=== PATIENT | female | born 2000 | race Two or more races ===

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

== ENCOUNTER 2022-09-26 15:40 | Outpatient (CLI) | payer MEDICAID ==
[2022-09-26 18:02] LABS: BASOPHILS % (AUTO) 0.6 %; EOSINOPHILS # (AUTO) 0.1 10^3/uL (0.0-0.7); EOSINOPHILS % (AUTO) 1.3 %; HGB - HEMOGLOBIN 13.4 g/dL (12.0-16.0); LYMPHOCYTES # (AUTO) 2.1 10^3/uL (1.5-3.5); LYMPHOCYTES % (AUTO) 30.1 %; MEAN CORPUSCULAR HEMOGLOBIN 30.6 pg (27.0-31.0); MEAN CORPUSCULAR HGB CONC 33.5 g/dL (32.0-36.0); MEAN CORPUSCULAR VOLUME 91.3 fL (81.0-99.0); MEAN PLATELET VOLUME 10.7 fL (7.9-10.8); MONOCYTES # (AUTO) 0.5 10^3/uL (0.0-1.0); MONOCYTES % (AUTO) 6.8 %; NEUTROPHILS # (AUTO) 4.2 10^3/uL (1.5-6.6); NEUTROPHILS % (AUTO) 61.1 %; PLT - PLATELET COUNT 294 10^3/uL (130-450); RED BLOOD COUNT 4.38 10^6/uL (4.20-5.40); WHITE BLOOD COUNT 6.9 x10^3/uL (4.8-10.8)
[2022-09-26 18:27] LABS: % IRON SATURATION 19 % (20-50); ALBUMIN 4.5 g/dL (3.2-5.5); CHOL/HDL RATIO 3.4 (<4.4); CHOLESTEROL 171 mg/dL; HDL CHOLESTEROL 51 mg/dL; IRON 70 ug/dL (50-212); LDL CHOLESTEROL,CALCULATED 102 mg/dL; TOTAL IRON BINDING CAPACITY 377 ug/dL (250-450); TRANSFERRIN 269 mg/dL (203-362); TRIGLYCERIDES 89 mg/dL (48-352); VLDL CHOLESTEROL 18 mg/dL
[2022-09-26 18:41] LABS: THYROID STIMULATING HORMONE 1.36 uIU/mL (0.34-5.60)
[2022-09-26 18:46] LABS: FERRITIN 12.7 ng/mL (11.0-306.8)
[2022-09-26 18:52] LABS: ALBUMIN/GLOBULIN RATIO 1.6 (1.0-2.2); ALKALINE PHOSPHATASE 43 IU/L (42-121); ALT ALANINE AMINOTRANSFERASE 13 IU/L (10-60); AST ASPARTATE AMINOTRANSFERASE 17 IU/L (10-42); BILIRUBIN,TOTAL 0.5 mg/dL (0.2-1.0); BUN - BLOOD UREA NITROGEN 6 mg/dL (6-20); CALCIUM 9.5 mg/dL (8.5-10.3); CARBON DIOXIDE - CO2 28 mmol/L (21-32); CHLORIDE 105 mmol/L (101-111); CREATININE 0.7 mg/dL (0.6-1.3); GFR - MDRD 107 (>89); GLUCOSE 78 mg/dL (74-104); POTASSIUM 3.5 mmol/L (3.5-4.5); SODIUM 138 mmol/L (135-145); TOTAL PROTEIN 7.3 g/dL (6.4-8.9)
[2022-09-27 15:09] LABS: FREE TESTOSTERONE(DIRECT) 1.3 pg/mL (0.0-4.2)
== END 2022-09-26 15:41 | disposition home or self-care (01) ==
LOC: LAB.N 15:40
PROVIDERS: ATTEND Nurse Practitioner Family
DX: Z00.00 Encounter for general adult medical examination without abnormal findings (principal); L67.8 Other hair color and hair shaft abnormalities; L64.8 Other androgenic alopecia
CPT/HCPCS: 36415; 80053; 80061; 82626; 82728; 83540; 83721; 84402; 84403; 84443; 84466; 85025

== ENCOUNTER 2023-07-25 16:59 | Outpatient (CLI) | payer MEDICAID ==
--- NOTE | 2023-07-26 11:41 | XRAY Report ---
PROCEDURE: Wrist 3+V RT INDICATIONS: GANGLION CYST, WRIST, RIGHT TECHNIQUE: 4 views of the wrist were acquired. COMPARISON: None. FINDINGS: Bones: No acute fractures or dislocations. No suspicious bony lesions. Soft tissues: No suspicious soft tissue calcifications. IMPRESSION: No acute osseous abnormality. If symptoms persist or there is continued clinical concern, further bouchra luation with MRI may be helpful. Reviewed by: Lamont Dowling MD on 07/26/2023 11:40 AM PDT Approved by: Lamont Dowling MD on 07/26/2023 11:40 AM PDT Station ID: [id number]
== END 2023-07-25 17:00 | disposition home or self-care (01) ==
LOC: DI 16:59
PROVIDERS: ATTEND Physician Assistant Surgical
DX: M67.431 Ganglion, right wrist (principal)